=== PATIENT | female | born 1970 ===

== ENCOUNTER 2022-10-08 06:30 | Day surgery (SDC) | payer OTHER ==
[~2022-10-08] VITALS: Ht 162.6 cm; Wt 60.8 kg
[~2022-10-08 06:30] MED LIST: RESTORIL15 M1 PO
== END 2022-10-08 16:45 | disposition home or self-care (01) ==
LOC: CIR.AMB 06:30
PROVIDERS: ATTEND Obstetrics & Gynecology
DX: N93.8 Other specified abnormal uterine and vaginal bleeding (principal); Z20.822 Contact with and (suspected) exposure to COVID-19